=== PATIENT | male | born 1975 | race Caucasian/White ===

== ENCOUNTER → 2023-12-04 | Outpatient (CLI) | payer OTHER, SELFPAY ==
--- NOTE | 2023-12-04 15:59 | RAD_ITS ---
INDICATION: Chronic pain EXAMINATION/TECHNIQUE: X-RAY - LEFT XR Knee Complete 4 Views COMPARISON: FINDINGS: SOFT TISSUES: No soft tissue swelling or gas. No radiopaque foreign body. BONES/JOINTS: No acute fracture or subluxation.. Normal alignment. Preservation of the joint space.. No sclerotic or destructive changes observed. RAD/Knee 4 or More Views IMPRESSION: No acute bony injury. Electronically Signed: Wai Soler DO at 16:18 EST ,
--- NOTE | 2023-12-04 15:59 | RAD_ITS ---
INDICATION: Chronic pain EXAMINATION/TECHNIQUE: X-RAY - RIGHT XR Knee Complete 4 Views COMPARISON: FINDINGS: SOFT TISSUES: No soft tissue swelling or gas. No radiopaque foreign body. BONES/JOINTS: No acute fracture or subluxation.. Normal alignment. Preservation of the joint space.. No sclerotic or destructive changes observed. RAD/Knee 4 or More Views IMPRESSION: No acute bony injury. Electronically Signed: Wai Soler DO at 16:17 EST ,
== END | disposition home or self-care (01) ==
PROVIDERS: PCP Family Medicine; Referring Provider Family Medicine; Visit Provider Family Medicine
DX: M25.562 Pain in left knee (principal)
CPT/HCPCS: 73564

== ENCOUNTER → 2025-06-12 | Outpatient (CLI) | payer OTHER, SELFPAY ==
--- OUTSIDE RECORDS SUMMARY | 2025-06-12 08:11 | XMS RPT_ITS | CCD ---
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 Name Role Phone Matthew Chavez Attending Unavailable Karis, Donna Primary Care Unavailable Karis, Chalon Referring Unavailable Karis, Chalon Referring Unavailable Karis, Chalon Primary Care Unavailable Karis, Chalon Attending Unavailable Problems Problem Classification Problem Date Documented Da te Episodic/Chronic Other non-traumatic joint disorders (1 source) Pain in left knee; Translations: [Pain in left knee] Onset: 12-09-2023 Episodic Results Test Name Value Interpretation Reference Range Facil ity Orthopedic Visit Reporton Orthopedic Visit Report [facility] [address] [place] [address] [place] [address] OFFICE VISIT Date of Service: 02/05/24 MR#: [id number] Acct: [id number] Name: CINTHIA CHILDRESS Rep #: [id number] : 1975 Provider: Dr. Matthew maravilla DO Age/Sex: 48/M [place] [facility] Status: Signed Intake Vital Signs 02/05/24 08:03 Height 5 ft 11 in Weight: 202 lb BMI 28.1 Intake Visit Reasons: BL KNEES Accompanied by: Self Is patient in pain?: Yes Pain scale (1-10): 5 Allergies No Known Allergies Allergy (Unverified 02/05/24 08:04) Medications NK 02/05/24 [History Confirmed 02/05/24] PFSH Surgical History (Updated 02/05/24 @ 08:04 by Elena Yost) H/O: knee surgery Family History (Updated 02/05/24 @ 08:06 by Elena Yost) Father Colon cancer Heart disease Social History household members: family Smoking Status: Never smoker alcohol intake: current HPI BL KNEES Details: This documentation accurately reflects the service provided and the decisions made by me, Dr. Matthew Chavez DO 02/05/24 0748. Part of today???s visit was documented by Elena Deleon ATC, acting as scribe. CINTHIA CHILDRESS is a 48 year old M here today for bilateral knee pain. Patient states that he has a knee scope on his right knee for a torn meniscus when he was 15 years old. He states that his knee never felt well after surgery. Patient notes that he has had pain off and on for many years. He did completed physical therapy about 3 years ago which helped. Patient notes that his pain is over his anterior and lateral knee. Patient denies any popping or clicking or instability. Patient has increased pain with activities but it decreases after a week of rest. He notes that he started exercising more last year and his pain increased. He then notes in August he jump and twisted his left knee. Patient had immediate pain and had swelling. Patient notes that he has pain over his medial knee and anterior knee.He has increased pain with kneeling. He denies any popping or clicking. He denies any instability. He is unable to stand for an entire basketball game due to his pain. He had xrays of both of his knees. Patient denies any bracing. He takes tylenol or ibuprofen which helps slightly. Denies any knee injections. Ortho Exam General General: Yes no acute distress Neurologic: Yes alert and Yes oriented x3 Psychologic: Yes reasonable and appropriate Right Knee Skin/Wound: Yes CDI, No erythema, No ecchymosis and No swelling Homans Sign: No Knee ROM: Yes ROM-Extension -20 to 0 and Yes ROM-Flexion 0-140 Examination: No Med jt line tenderness, No Lat jt line tenderness, Yes Crepitus, No Pain with flexion, No Pain with extention, No Sybil's Test, No TTP Pes Anserine and No Illiotibial band tenderness Stability: NML: Anterior Drawer, NML: Mame, NML: Posterior Drawer, NML: Valgus 0, NML: Valgus 30, NML: Varus 0 and NML: Varus 30 Patella Translation: 1 Patella Grind: Yes KNEE: pain and crepitus with patellar grind. varicose veins. Left Knee Skin/Wound: Yes CDI, No ecchymosis, No erythema and No swelling Knee ROM: Yes ROM-Extension -20 to 0 and Yes ROM-Flexion 0-140 Examination: No med jt line tenderness, No Lat jt line tenderness, No Sybil's Test, No TTP Pes Anserine and No Illiotibial band tenderness Stability: NML: Anterior Drawer, NML: Mame, NML: Posterior Drawer, NML: Valgus 0, NML: Valgus 30 (pain, no instability), NML: Varus 0 and NML: Varus 30 Patella Translation: 1 Patella Grind: No Supplemental Info 12/04/2023 x-ray right knee: Faint spurring medial femoral condyle notch view, mild spurring noted patellofemoral joint patella and trochlea 12/04/2023 x-ray left knee: Faint spurring of trochlea possible early narrowing medially relatively normal x-ray Coding Level of Care Code Off vis,new,level 3 Diagnoses Synovitis of knee M65.9 Chondromalacia, left knee M94.262 Chondromalacia, right knee M94.261 Assessment and Plan Assessment and Plan (1) Synovitis of knee: (2) Chondromalacia, left knee: Status: Acute (3) Chondromalacia, right knee: Status: Acute Plan Educated the patient about the anatomy of the knee. Spoke with the patient about the etiology of his pain and explained he has very early cartilage wear and softening that gets irritated with more intense activity causing synovitis. There is no sign of any meniscal or cruciate pathology he is having no mechanical symptoms. He should avoid high impact activities as it might increase his pain. He may bike ride. Recommended the patient take ibuprofen for a few days after he over does his activities. He may do formal physical therapy for strengthening. He may also have steroid injections. Patient wanted to stick with OTC anti-inflammatories. He may take 3 ta (more content not included)... Normal [facility] Knee 4 or More Viewson 12-04 Knee 4 or More Views [facility] Imaging Services [address] [place] [address] Knee 4 or More Views MR#: [id number] Acct: [id number] Name: CINTHIA CHILDRESS Rep #: [id number] : 1975 M 48 From: Wai Soler DO PCP: Dr. Donna Dyson MD Status: REG CLI Study: Knee 4 or More Views Date of Exam: 12/04/23 Exam# [id number] Ordering Dr: Donna Dyson MD [id number] INDICATION: Chronic pain EXAMINATION/TECHNIQUE : X-RAY - RIGHT XR Knee Complete 4 Views COMPARISON: __ FINDINGS: SOFT TISSUES: No soft tissue swelling or gas. No radiopaque foreign body. BONES/JOINTS: No acute fracture or subluxation.. Normal alignment. Preservation of the joint space.. No sclerotic or destructive changes observed. RAD/Knee 4 or More Views IMPRESSION: No acute bony injury. Electronically Signed: Wai Soler DO at 16:17 EST Reading Location ID and State: [address] [place] [address] Tel [phone], Service support , CC: Dr. Donna Dyson MD Business Risk Analyst: Signed Normal [facility] Knee 4 or More Views [facility] Imaging Services [address] [place] [id number] Knee 4 or More Views MR#: [id number] Acct: [id number] Name: CINTHIA CHILDRESS Rep #: [id number] : 1975 M 48 From: Wai Soler DO PCP: Dr. Donna Dyson MD Status: REG CLI Study: Knee 4 or More Views Date of Exam: 12/04/23 Exam# [id number] Ordering Dr: Donna Dyson MD [id number] INDICATION: Chronic pain EXAMINATION/TECHNIQUE : X-RAY - LEFT XR Knee Complete 4 Views COMPARISON: __ FINDINGS: SOFT TISSUES: No soft tissue swelling or gas. No radiopaque foreign body. BONES/JOINTS: No acute fracture or subluxation.. Normal alignment. Preservation of the joint space.. No sclerotic or destructive changes observed. RAD/Knee 4 or More Views IMPRESSION: No acute bony injury. Electronically Signed: Wai Soler DO at 16:18 EST , CC: Dr. Donna Dyson MD Business Risk Analyst: Signed Normal [facility] 06-10-2021 DEBBIE Telephone (WALKWA) CINTHIA CHILDRESS ([id number]) 1975 M Date Time Provider Department 06/10/21 SERG HOWE During your visit today, we recorded the following information about you: Serg Howe APRN.OIL BURNER REPAIRER 06/10/2021 11:50 AM Signed COVID 19 negative. Reached out and spoke with patient. Questions answered. Allergies As of Date: 06/10/2021 (No Known Allergies) Date Reviewed: 06/09/2021 Reviewed by: Shelbie Harrington APRN.[facility] - Fully Assessed Reason for Visit: Results [95] Prescriptions as of 06/10/2021 - multivitamins(DAILY MULTIVITAMIN TAB) Take one(1) tablet daily. Problem List As Of Date 06/10/2021 Noted Resolved ESOPHAGEAL REFLUX [K21.9] 12/03/2006 OTHER PSORIASIS [L40.8] 12/03/2006 LUMBAGO [M54.5] 02/17/2008 CALCANEAL SPUR [M77.30] 01/28/2009 Family history of colon cancer in father [Z80.0]06/25/2018 Chronic pain of right knee [M25.561, G89.29] 04/29/2020 Encounter Status:Closed by SERG HOWE on 06/10/21 [facility] CNOVon 06-09-2021 CNOV Office Visit (UCWSTR ) MADELINCINTHIA Moore ([id number]) 1975 M Date Time Provider Department 06/09/21 3:15 PM SHELBIE HARRINGTON [facility] During your visit today, we recorded the following information about you: Temperature Pulse Respiration Blood pressure 98.3 degrees 88/minute 16/minute 122/62 Weight 85.7 kg Shelbie Harrington APRN.OIL BURNER REPAIRER 06/09/2021 2:14 PM Signed Subjective HPI Nontoxic-appearing male presents urgent care chiefly COVID-19 exposure. Duration of symptoms 1 week. Associated symptoms head congestion, cough, fatigue slight chills. Patient states symptoms started approximately 1 week ago. Mother father tested positive for COVID-19 yesterday. Patient states he was around them last few days. Denies any OTC medication use today. States son became ill last night. Son has had a fever. And cough. Patient is vaccinated against COVID-19. Denies any nausea, vomiting, abdominal pain, chest pain, pleuritic pain, productive cough, shortness of breath, visual changes change in bowel or bladder habit. Past medical history prescription medication use allergies reviewed. .Patient presents with: Head Congestion: cough x 1 week, + exposure PAST MEDICAL HISTORY Diagnosis Date - Esophageal reflux PAST SURGICAL HISTORY Procedure Laterality Date - COLONOSCOP W/ OR W/O [facility] SPEC 07/07/2018 Colonoscopy - REMOVE TONSILS/ADENOIDS,12+ Y/O ALLERGIES Patient has no known allergies. MEDICATIONS multivitamins(DAILY MULTIVITAMIN TAB) Take one(1) tablet daily. FAMILY HISTORY Problem Relation Age of Onset - Colon Cancer Father 68 - Heart Father 9 bypass surgery Social History Tobacco Use - Smoking status: Never Smoker - Smokeless tobacco: Never Used Substance Use Topics - Alcohol use: Yes Alcohol/week: 25.0 standard drinks Types: 10 Cans of Beer (12oz) per week Comment: moderate - Drug use: No BP 122/62 Pulse 88 Temp 36.8 ?C (98.3 ?F) Resp 16 Wt 85.7 kg (189 lb) SpO2 96% Review of Systems Constitutional: Negative for chills, fever and malaise/fatigue. HENT: Positive for congestion and sore throat. Negative for ear discharge, ear pain and sinus pain. Eyes: Negative for blurred vision. Respiratory: Positive for cough. Negative for sputum production, shortness of breath and wheezing. Cardiovascular: Negative for chest pain. Gastrointestinal: Negative for abdominal pain, diarrhea, nausea and vomiting. Musculoskeletal: Positive for myalgias. Skin: Negative for itching and rash. Neurological: Negative for dizziness and headaches. Objective Physical Exam Constitutional: General: He is not in acute distress. Appearance: He is not diaphoretic. HENT: Head: Normocephalic. Nose: Congestion present. Mouth/Throat: Mouth: Mucous membranes are moist. Pharynx: Oropharynx is clear. Posterior oropharyngeal erythema present. No oropharyngeal exudate. Eyes: Conjunctiva/sclera: Conjunctivae normal. Pupils: Pupils are equal, round, and reactive to light. Cardiovascular: Rate and Rhythm: Normal rate and regular rhythm. Heart sounds: Normal heart sounds. Pulmonary: Effort: Pulmonary effort is normal. No tachypnea, accessory muscle usage or respiratory distress. Breath sounds: Normal breath sounds. No stridor. Abdominal: Palpations: Abdomen is soft. Tenderness: There is no abdominal tenderness. Musculoskeletal: Cervical back: Normal range of motion and neck supple. No rigidity or tenderness. Lymphadenopathy: Cervical: No cervical adenopathy. Skin: General: Skin is warm and dry. Neurological: Mental Status: He is alert and oriented to person, place, and time. ASSESSMENT/PLAN: 1. Viral URI - ICD9: 465.9, ICD10: J06.9 - 2019 CORONAVIRUS COVID-19 test ordered. Results pending. Alternative diagnosis discussed. Home quarantine recommended. Patient was educated on supportive therapies. Patient will follow up with primary care provider as needed. Patient was instructed to immediately proceed to emergency room for any new, worsening, or symptoms lasting longer than anticipated. The patient's clinical presentation is otherwise unremarkable at this time. Based on exam and clinical finding, the patient is stable for discharge. Plan of care was discussed with patient. Patient verbalizes understanding and agrees to plan of care. This note was generated using Acheive CCA software. It may contain errors in wording, punctuation, or spelling. Shelbie Harrington APRN.TRAMAINE Harrington APRN.CNP 06/09/2021 1:54 PM Signed CARE ADVICE FOR COUGH: ? Drink warm fluids. Inhale warm mist. (Reason: both relax the airway and loosen up the phlegm) ? Suck on cough drops or hard candy to coat the irritated throat. OTC COUGH DROPS: Cough drops can help a lot, especially for mild coughs. They reduce coughing by soothing your irritated throat and removing that tickle (more content not included)... Normal [facility] Coronavirus 2019on SARS-CoV-2 (COVID-19) RNA GEOVANNY+probe Ql (Unsp spec) UPPER RESPIRATORY TRACT SWAB Normal [facility] Comment on above: Performed By: #### C OVID #### [place] [address] [place] [address] SARS-CoV-2 (COVID-19) RNA GEOVANNY+probe Ql (Unsp spec) Negative for COVID19 (SARS CoV2) by RT-PCR or equivalent method. Normal Negative for COVID19 (SARS CoV2) by RT-PCR or equivalent method. [facility] Comment on above: Result Comment: This test was developed and its performance characteristics determined by [facility] [place]. This test has been authorized by FDA under an Emergency Use Authorization (EUA). This test has been validated in accordance with the FDA's Guidance Document Policy for Diagnostics Testing in Laboratories Certified to Perform High Complexity Testing under CLIA prior to Emergency use Authorization for Coronavirus Disease 2019 during the Public Health Emergency issued on December 19, 2019. Test performed by [facility], [facility] [place], [facility] [place], [place] [address]. Performed By: #### C OVID #### [place] [address] Encounters Encounter Date Encounter Type Care Provider Facility Start: 02-05-2024 End: 02-05-2024 ambulatory Matthew Chavez Facility:[facility] Start: 12-04-2023 End: 12-04-2023 Patient encounter procedure [facility] [place] Work Phone: Start: 12-04-2023 End: 12-04-2023 ambulatory Donna Dyson [facility] Work Phone: Procedures Date Procedure Procedure Detail Performing Clinician Start: 12-04-2023 Radiologic examinati on of knee Payers Date Payer Category Payer Private Health Insurance [id number] 2023 Self-pay Unknown [id number] Unknown [id number] Social History Date Type Detail Facility Tobacco smoking stat [facility] Unknown if ever smoked [facility] Work Phone: Start: 1975 Sex Assigned At Male W [facility] Progress note 06-09-2021 Note Date & Type Note Facility 06-09-2021 Note HNO ID: [id number] Author: Shelbie Harrington APRN.OIL BURNER REPAIRER Service: ? Author Type: Nurse Practitioner Type: Progress Notes Filed: 06/09/2021 2:14 PM Note Text: Subjective HPI Nontoxic-appearing male presents urgent care chiefly COVID-19 exposure. Duration of symptoms 1 week. Associated symptoms head congestion, cough, fatigue slight chills. Patient states symptoms started approximately 1 week ago. Mother father tested positive for COVID-19 yesterday. Patient states he was around them last few days. Denies any OTC medication use today. States son became ill last night. Son has had a fever. And cough. Patient is vaccinated against COVID-19. Denies any nausea, vomiting, abdominal pain, chest pain, pleuritic pain, productive cough, shortness of breath, visual changes change in bowel or bladder habit. Past medical history prescription medication use allergies reviewed. .Patient presents with: Head Congestion: cough x 1 week, + exposure PAST MEDICAL HISTORY Diagnosis Date - Esophageal reflux PAST SURGICAL HISTORY Procedure Laterality Date - COLONOSCOP W/ OR W/O [facility] SPEC 07/07/2018 Colonoscopy - REMOVE TONSILS/ADENOIDS,12+ Y/O ALLERGIES Patient has no known allergies. MEDICATIONS multivitamins(DAILY MULTIVITAMIN TAB) Take one(1) tablet daily. FAMILY HISTORY Problem Relation Age of Onset - Colon Cancer Father 68 - Heart Father 9 bypass surgery Social History Tobacco Use - Smoking status: Never Smoker - Smokeless tobacco: Never Used Substance Use Topics - Alcohol use: Yes Alcohol/week: 25.0 standard drinks Types: 10 Cans of Beer (12oz) per week Comment: moderate - Drug use: No BP 122/62 Pulse 88 Temp 36.8 ?C (98.3 ?F) Resp 16 Wt 85.7 kg (189 lb) SpO2 96% Review of Systems Constitutional: Negative for chills, fever and malaise/fatigue. HENT: Positive for congestion and sore throat. Negative for ear discharge, ear pain and sinus pain. Eyes: Negative for blurred vision. Respiratory: Positive for cough. Negative for sputum production, shortness of breath and wheezing. Cardiovascular: Negative for chest pain. Gastrointestinal: Negative for abdominal pain, diarrhea, nausea and vomiting. Musculoskeletal: Positive for myalgias. Skin: Negative for itching and rash. Neurological: Negative for dizziness and headaches. Objective Physical Exam Constitutional: General: He is not in acute distress. Appearance: He is not diaphoretic. HENT: Head: Normocephalic. Nose: Congestion present. Mouth/Throat: Mouth: Mucous membranes are moist. Pharynx: Oropharynx is clear. Posterior oropharyngeal erythema present. No oropharyngeal exudate. Eyes: Conjunctiva/sclera: Conjunctivae normal. Pupils: Pupils are equal, round, and reactive to light. Cardiovascular: Rate and Rhythm: Normal rate and regular rhythm. Heart sounds: Normal heart sounds. Pulmonary: Effort: Pulmonary effort is normal. No tachypnea, accessory muscle usage or respiratory distress. Breath sounds: Normal breath sounds. No stridor. Abdominal: Palpations: Abdomen is soft. Tenderness: There is no abdominal tenderness. Musculoskeletal: Cervical back: Normal range of motion and neck supple. No rigidity or tenderness. Lymphadenopathy: Cervical: No cervical adenopathy. Skin: General: Skin is warm and dry. Neurological: Mental Status: He is alert and oriented to person, place, and time. ASSESSMENT/PLAN: 1. Viral URI - ICD9: 465.9, ICD10: J06.9 - 2019 CORONAVIRUS COVID-19 test ordered. Results pending. Alternative diagnosis discussed. Home quarantine recommended. Patient was educated on supportive therapies. Patient will follow up with primary care provider as needed. Patient was instructed to immediately proceed to emergency room for any new, worsening, or symptoms lasting longer than anticipated. The patient's clinical presentation is otherwise unremarkable at this time. Based on exam and clinical finding, the patient is stable for discharge. Plan of care was discussed with patient. Patient verbalizes understanding and agrees to plan of care. This note was generated using Acheive CCA software. It may contain errors in wording, punctuation, or spelling. Shelbie Harrington APRN.[facility] Evaluation note Note Date & Type Note Facility Evaluation note No assessment information availa [facility] Work Phone: Summary Purpose Family History No Family History Records FoundNo Family History Records Found Advance Directives No Advanced Directives Records FoundNo Advanced Directives Records Found Additional Source Comments (unrecognized sect ion and content) No Status Records FoundNo Status Records Found INFORMATION SOURCE (unrecogn ized section and content) DATE CREATED AUTHOR 11/26/2021 [facility] DATE CREATED AUTHOR AUTHOR'S ORGANIZ ATION 02/06/2024 [facility] Care Teams (unrecognized sec tion and content) Team Status: Active Member Role Status Farhat Dyson MD Primary Care Provider Active Team Status: Inactive Member Role Status Farhat Dyson MD Primary Care Provide r, Attending Provider, Referring Provider Active Goals (unrecognized section and content) Goals may be documented in a n alternate section FOR RECORDS PERTAINING TO PATIENTS WHO ARE OR HAVE BEEN ENROLLED IN A CHEMICAL DEPENDENCY/SUBSTANCEABUSE PROGRAM, SOME INFORMATION MAY BE OMITTED. This clinical summary was aggregated from multiple sources. Caution should be exercised in using it in the provision of clinical care. This summary normalizes information from multiple sources, and as a consequence, information in this document may materially change the coding, format and clinical context of patient data. In addition, data may be omitted in some cases. CLINICAL DECISIONS SHOULD BE BASED ON THE PRIMARY CLINICAL RECORDS. [facility]. provides no warranty or guarantee of the accuracy or completeness of information in this document.
[2025-06-12 08:58] LABS: Hematocrit 40.3 % (40-54); Hemoglobin 14.5 g/dL (13.0-16.5); Mean Corp Hgb Conc 36.0 g/dL (32-36); Mean Corpuscular Volume 86.5 fL (80-94); Mean Platelet Vol. 10.1 fl (6.2-12.0); Platelet Count 250 K/mm3 (150-450); RBC Distribution Width CV 12.3 % (11.6-14.6); RBC Distribution Width SD 38.9 fl (35.1-43.9); Red Blood Count 4.66 M/mm3 (4.6-6.2); White Blood Count 6.8 K/mm3 (4.4-11.0)
[2025-06-12 09:50] LABS: Anion Gap 12 (5-15); BUN 14 mg/dL (4-19); BUN/Creat Ratio 16.6 RATIO (10-20); Calcium,Total 9.2 mg/dL (7.6-11.0); Carbon Dioxide 24.4 mmol/L (21.0-32.0); Chloride 104 mmol/L (98-108); Cholesterol 177 mg/dL (<=200); Glucose 113 mg/dL (70-99); Low Density Lipoprotein Calc. 99 mg/dL; Potassium 4.4 mmol/L (3.3-5.1); Triglycerides 182 mg/dL; Very Low Density Lipoprotein 36 mg/dL (5-40); cholesterol:hdl ratio screen 4.25
== END | disposition home or self-care (01) ==
PROVIDERS: PCP Family Medicine; Referring Provider Family Medicine; Visit Provider Family Medicine
DX: Z00.00 Encounter for general adult medical examination without abnormal findings (principal); R73.09 Other abnormal glucose; Z13.1 Encounter for screening for diabetes mellitus; Z13.220 Encounter for screening for lipoid disorders
CPT/HCPCS: 36415; 80048; 80061; 83036; 85027

== ENCOUNTER 2025-08-13 09:10 | Day surgery (SDC) | payer OTHER, SELFPAY ==
[2025-08-13] VITALS (9 sets, daily range): BP systolic 86–100; BP diastolic 58–72; PULSE 71–91; RESP 16–18; TEMP 36.1–37.2; O2SAT 96–97; BMI 27.5
[2025-08-13] MEDS: Lactated Ringers 1,000 ML 15 ML IV (09:34)
--- NOTE | 2025-08-13 10:21 | PCM.PRE.AN2 ---
ASA Classification* ASA Classification ASA Classification: 1 Assessment & Plan Anesthesia* Anesthesia Assessment Anesthesia Assessment: Discussed sedation and/or anesthesia options, risks, benefits, and alternatives with patient/parents/legal guardian/POA. Questions invited. The patient/parents/legal guardian/POA seems to understand and agrees to proceed with anesthesia plan. Reviewed the physical assessment, medical history, allergy history and patient home medications list prior to surgery/procedure/anesthetic and documented any changes. Performed airway and anesthesia risk assessments. Anesthesia Type Anesthesia Type: MAC History Source History Obtained from:: Patient and Chart Anesthesia Focused Assessment* Temperature: 97 F Pulse Rate: 91 Blood Pressure: 100/71 Respiratory Rate: 16 Pulse Ox: 97 Oxygen Delivery Method: Room Air Airway Assessment Mouth opens: >3 cm Mallampati Score: I Teeth Condition: Intact Neck Range of motion (ROM): Full ROM Labs Anesthesia Preop lab: CBC WBC, (4.4-11.0) 6.8 K/mm3 06/12/25, 08:11 RBC, (4.6-6.2) 4.66 M/mm3 06/12/25, 08:11 Hgb, (13.0-16.5) 14.5 g/dL 06/12/25, 08:11 Hct, (40-54) 40.3 % 06/12/25, 08:11 Plt Count, (150-450) 250 K/mm3 06/12/25, 08:11 CHEMISTRY Potassium, (3.3-5.1) 4.4 mmol/L 06/12/25, 08:11 Sodium, (133-145) 140 mmol/L 06/12/25, 08:11 BUN, (4-19) 14 mg/dL 06/12/25, 08:11 Creatinine, (0.70-1.20) 0.87 mg/dL 06/12/25, 08:11 Glucose, (70-99) 113 mg/dL H 06/12/25, 08:11 COAG Pre-Assessment Diagnosis/Proposed Procedure Planned Operative Procedure(s): COLONOSCOPY Anesthesia History Anesthesia History - wellness educator: Anesthesia History - wellness educator Hx Hospitalization No 07/26/25 11:23 Any Problems With Anesthesia No 07/26/25 11:23 Cholinesterase deficiency No 07/26/25 11:23 You/Your Family Experience No 07/26/25 11:23 fever (hyperthermia) with Relationship Recent Exposure to Contagious No 08/13/25 09:31 Disease Does patient have nerve No 07/26/25 11:23 stimulator Patient instructed to have device shut off --Does patient have Pacemaker No 08/13/25 09:31 or ICD? When Was Last Pacemaker Check QUESTION #4 FULL TEXT: You/Your Family Experience fever (hyperthermia) with Anesthesia Last Oral Intake Last Oral intake: Last Oral Intake NPO since 0000 Meds taken in AM with sips of water? Meds patient instructed to take am of surgery Any additional information?: Yes NPO since: 00:00 Meds taken in AM with sips of water?: No PONV PONV - wellness educator: PONV - wellness educator Female No 07/26/25 11:23 HX of Motion Sickness No 07/26/25 11:23 HX of N/V After Surgery No 07/26/25 11:23 Non-Smoker Yes 07/26/25 11:23 Duration of Surgery greater No 07/26/25 11:23 than 60 minutes Number of Risk Factors 1 07/26/25 11:23 PONV Score Low Risk 07/26/25 11:23 Height & Weight Height & Weight: Anesthesia: Height & Weight Height 5 ft 11 in 08/13/25 09:31 Weight: 89.6 kg 08/13/25 09:31 Body Mass Index (BMI) 27.5 08/13/25 09:31 Respiratory Assessment Respiratory Assessment - wellness educator: Respiratory Tract Infection Hx - wellness educator Hx Respiratory Tract Infection No 07/26/25 11:23 STOP Sleep Apnea STOP Sleep Apnea - wellness educator: STOP Sleep Apnea - wellness educator Hx Hypertension No 07/26/25 11:23 Hx Sleep Apnea No 07/26/25 11:23 CPAP BIPAP Do you snore loudly (louder No 07/26/25 11:23 than talking or can be heard Do you often feel tired/ No 07/26/25 11:23 fatigued/ sleepy during daytime? Has anyone observed you stop No 07/26/25 11:23 breathing during sleep? STOP Results Negative 07/26/25 11:23 QUESTION #5 FULL TEXT : Do you snore loudly (louder than talking or can be heard through closed doors)? 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 Specify any problems Hx of Preganancy in last 3 N/A 07/26/25 11:23 Months Nurse Filling Out Transfusion [email or web address] 07/26/25 11:23 & Questions: Date: 07/26/25 07/26/25 11:23 Time: 11:30 07/26/25 11:23 Patient unable to answer at this time (ie. confused, unrespo /Reproduction History /Reproductive History - wellness educator: /Reproductive Hx- wellness educator Hx Now Gestational Age (in weeks): EDC: Hx Hx Para Hx Section SAB Active Medications Active Medications: Current Medications Generic Name Dose Route Start Last Admin Trade Name Freq PRN Reason Stop Dose Admin Lactated Ringer's 1,000 mls @ 15 mls/hr 08/13/25 09:30 08/13/25 09:34 IV 15 mls/hr .Q48H AYAN Administration PFSH Medical History Wears glasses Alcohol use Arthritis High cholesterol Gastric reflux Non-smoker Home Medications Medication Instructions Recorded Last Taken Type NK 02/05/24 Unknown History Allergy/AdvReac Type Severity Reaction Status Date / Time No Known Allergies Allergy Verified 08/13/25 09:30 Family History Father Colon cancer Heart disease Surgical History History of tonsillectomy H/O: knee surgery Social History household members: family Smoking Status: Never smoker alcohol intake: current Review of Systems (Anesthesia) ROS Narrative System reviewed and no additional complaints, except as documented.
--- NOTE | 2025-08-13 10:22 | H&P.OPEN ---
HPI - General HPI Narrative CINTHIA CHILDRESS, is a 50 M who presents for screening colonoscopy. His last colonoscopy was in 2018. He reports he was recommended to repeat in 5 years. He does have family history of colon cancer in his father and grandmother. His father was over 60 years old when he was diagnosed. The patient denies any abdominal pain or blood in the stool. PFSH Medical History Wears glasses Alcohol use Arthritis High cholesterol Gastric reflux Non-smoker Home Medications Medication Instructions Recorded Last Taken Type NK 02/05/24 Unknown History Allergy/AdvReac Type Severity Reaction Status Date / Time No Known Allergies Allergy Verified 08/13/25 09:30 Family History (Updated 02/05/24 @ 08:07 by Elena Yost) Father Colon cancer Heart disease Surgical History (Updated 07/26/25 @ 11:23 by Lenore Orantes) History of tonsillectomy H/O: knee surgery Social History (Updated 02/05/24 @ 08:05 by Elena Yost) household members: family Smoking Status: Never smoker alcohol intake: current Past Medical/Surgical History Planned Operation Planned Operative Procedure(s): COLONOSCOPY Previous Hospitalizations/Surgeries HX Hospitalizations: No Any Problems With Anesthesia: No You/Your Family Experience Fever (Hyperthermia) With Anes: No Cholinesterase deficiency: No Cardiovascular Hx Hypertension: No Respiratory Hx Sleep Apnea: No Hx Respiratory Tract Infection/Cold (presently): No Do You Snore Loudly (louder than talking or can be heard): No Do You Often Feel Tired/ Fatigued/ Sleepy Dring Daytime?: No Has Anyone Observed You Stop Breathing During Sleep?: No Result (for STOP score): Negative Smoking Status: Never smoker Neurological Does patient have nerve stimulator: No Miscellaneous Recent Exposure to Contagious Disease: No Allergies No Known Allergies Allergy (Verified 08/13/25 09:30) Discharge Is Pt Admitted From a Mcfp, or a Halfway: No Who Could Help: FRIEND After D/C, Where Do you Plan to Go: Return Home Vital Signs Vital Signs Vital Signs: 08/13/25 09:31 08/13/25 09:31 Temperature 97 F L Temperature Source Temporal Pulse Rate 91 Respiratory Rate 16 Respiratory Pattern Normal Blood Pressure 100/71 Blood Pressure Mean 80 Blood Pressure Source Monitor Blood Pressure Position Semi-Fowlers Blood Pressure Location Right Arm Pulse Ox 97 Oxygen Delivery Method Room Air Weight Weight: 197 lb 8.547 oz Body Mass Index (BMI) 27.5 Physical Exam Const alert and oriented x3 HEENT normocephalic Eyes PERRL Resp normal respiratory effort and normal air movement Cardio regular rate and regular rhythm GI soft to palpation, non-tender and non-distended Extremity normal to inspection Assessment & Plan Assessment/Plan (1) Family history of colon cancer in father: PLAN: I explained endoscopy in detail to the patient. I explained the risks including but not limited to stroke or heart attack with anesthesia, perforation of the GI tract, bleeding, infection. I explained that any of these could necessitate further emergency surgery. The patient understands and all questions were answered sufficiently. The patient wishes to proceed with procedure. Evangelist Molina MD Pager: [facility] [address] [place] [address], [address] [place] [address] Office: Surgery Risks - Colonoscopy Risks Include but are not Limited To: Risks include but are not limited to: Bleeding, perforation requiring further surgery, inability to complete colonoscopy requiring barium enema.
--- NOTE | 2025-08-13 10:46 | OP.COLON_ITS ---
Patient Name: Stu Little Procedure Date: 08/13/2025 10:27 AM Date of : 1975 Age: 50 Procedure: Colonoscopy Indications: Screening in patient at increased risk: Colorectal cancer in father 60 or older Providers: Evangelist Molina MD Referring MD: Donna Dyson Md Medicines: Propofol per Anesthesia Patient Profile: This is a 50 year old male. Refer to note in patient chart for documentation of history and physical. Last Colonoscopy: several years ago. Complications: No immediate complications. Procedure: Pre-Anesthesia Assessment: - Prior to the procedure, a History and Physical was performed, and patient medications and allergies were reviewed. The patient's tolerance of previous anesthesia was also reviewed. The risks and benefits of the procedure and the sedation options and risks were discussed with the patient. All questions were answered, and informed consent was obtained. Prior Anticoagulants: The patient has taken no anticoagulant or antiplatelet agents. After reviewing the risks and benefits, the patient was deemed in satisfactory condition to undergo the procedure. After I obtained informed consent, the scope was passed under direct vision. Throughout the procedure, the patient's blood pressure, pulse, and oxygen saturations were monitored continuously. The Colonoscope was introduced through the anus and advanced to the cecum, identified by appendiceal orifice and ileocecal valve. The colonoscopy was performed without difficulty. The patient tolerated the procedure well. The quality of the bowel preparation was good. The ileocecal valve, appendiceal orifice, and rectum were photographed. Scope In: 10:36:37 AM Scope Withdrawal Time 0 hours 3 minutes 39 seconds Scope Out: 10:43:03 AM Total Procedure Duration Time 0 hours 6 minutes 26 seconds Findings: The entire examined colon appeared normal on direct and retroflexion views. Impression: - The entire examined colon is normal on direct and retroflexion views. - No specimens collected. Recommendation: - Discharge patient to home. - Resume previous diet. - Continue present medications. - Repeat colonoscopy in 10 years for surveillance. Procedure Code(s): --- Professional --- 86116, Colonoscopy, flexible; diagnostic, including collection of specimen(s) by brushing or washing, when performed (separate procedure) Diagnosis Code(s): --- Professional --- Z80.0, Family history of malignant neoplasm of digestive organs CPT copyright 2021 [employer]. All rights reserved. The codes documented in this report are preliminary and upon aquatic facility manager review may be revised to meet current compliance requirements. Evangelist Molina MD 08/13/2025 10:46:02 AM This report has been signed electronically. Number of Addenda: 0 Note Initiated On: 08/13/2025 10:27 AM
--- NOTE | 2025-08-13 10:47 | OP.PROVAT_ITS ---
08/13/2025 Donna Dyson Md Re : Colonoscopy procedure for Stu Little Dear Karis This procedure was performed on Wednesday, August 13, 2025. My impressions and recommendations are as follows: Impressions : - The entire examined colon is normal on direct and retroflexion views. - No specimens collected. Recommendations : - Discharge patient to home. - Resume previous diet. - Continue present medications. - Repeat colonoscopy in 10 years for surveillance. My findings are described in the full procedure note, which is enclosed. If I can be of further assistance, please feel free to contact me at Doctor phone number(s): , Work: . Sincerely, Evangelist Molina MD 08/13/2025 10:46:02 AM This report has been signed electronically.
--- NOTE | 2025-08-13 10:52 | PCM.POST.ANE ---
Anesthesia: Postop Eval I Current Vital Signs Temperature: 97 F Pulse Rate: 81 Blood Pressure: 88/69 Respiratory Rate: 16 Pulse Ox: 97 Oxygen Delivery Method: Room Air Assessment Airway patent: Yes Spontaneous unlabored respirations: Yes Mental status: Asleep nausea: No Vomiting: No Anesthesia Complication: No Fluid Hydration Crystalloid volume administer (ml): 500 Total IV fluid infused: 500 Progress Note Anesthesia document: Postop Eval 1 completed: Yes
--- NOTE | 2025-08-13 12:02 | PCM.POSTANE2 ---
Anesthesia Postop Eval I Sum Postop Eval Completion status Anesthesia document: Postop Eval 1 completed: Yes Anesthesia Postop Eval I Summary Anesthesia Postop Eval I Summary: Anesthesia Postop Eval I: Assessment Summary Airway patent Yes 08/13/25 10:53 [email or web address] Spontaneous unlabored Yes 08/13/25 10:53 [email or web address] respirations Mental status Asleep 08/13/25 10:53 [email or web address] nausea No 08/13/25 10:53 [email or web address] Vomiting No 08/13/25 10:53 [email or web address] Anesthesia Postop Eval I: Fluid Summary Crystalloid volume administer 500 08/13/25 10:53 [email or web address] (ml) Colloids volume administered ( ml) Blood Product volume administered (ml) Total IV fluid infused 500 08/13/25 10:53 [email or web address] Anesthesia Postop Eval I: Summary Notes Anesthesia Complication No 08/13/25 10:53 [email or web address] Anesthesia Complication Comment: Post-operative progress note Anesthesia: Postop Eval II Evaluation Mental status: Awake Pain Level: 0 nausea: No Vomiting: No
== END 2025-08-13 11:34 | disposition home or self-care (01) ==
LOC: EN 09:11 → AC 09:16
PROVIDERS: PCP Family Medicine; Referring Provider Family Medicine; Visit Provider Surgery
PROC: 0DJD8ZZ Inspection of Lower Intestinal Tract, Via Natural or Artificial Opening Endoscopic (ICD-10-PCS; CPT 45378; principal; 2025-08-13 10:10)
DX: Z12.11 Encounter for screening for malignant neoplasm of colon (principal); E78.00 Pure hypercholesterolemia, unspecified; I10 Essential (primary) hypertension; Z80.0 Family history of malignant neoplasm of digestive organs
CPT/HCPCS: 45378; J2405